=== PATIENT | male | born 1945 | race Caucasian/White ===

== ENCOUNTER → 2021-04-19 | Outpatient (CLI) | payer OTHER, MEDICARE ==
[~2021-04-19] MED LIST: ASPI81CH33 PO; ATOR1TAB19 PO; CYAN100050 PO; D3 +TAB PO; LISI10TA15 PO; METF500T13 PO; POLY17PO10 PO
== END ==
LOC: M LABSMTC 10:52
PROVIDERS: ATTEND Anesthesiology
DX: Z01.812 Encounter for preprocedural laboratory examination (principal); Z20.822 Contact with and (suspected) exposure to COVID-19

== ENCOUNTER 2021-04-24 09:07 | Day surgery (SDC) | payer MEDICARE, OTHER ==
[~2021-04-24] VITALS: Ht 182.9 cm; Wt 100.7 kg
[~2021-04-24 09:07] MED LIST changes: -LIQUID POLIBAR PLUS 105% w/v 1900ML BTL As Ordered ONE; +NS 1,000 ML IV ONE
[2021-04-24] MEDS ORDERED: propofoL 200 MG/20 ML VIAL As Ordered ONE (11:55)
--- NOTE | 2021-04-24 12:02 | ROOR ---
Patient Name: Bismark Villegas Procedure Date: 04/24/2021 11:34 AM Date of : 1945 Age: 75 Room: [facility] Gender: Male Note Status: Finalized Procedure: Colonoscopy Indications: High risk colon cancer surveillance: Personal history of colonic polyps Providers: DO Julio Westfall MD: Ton Bojorquez Requesting Provider: Medicines: Propofol per Anesthesia Complications: No immediate complications. Procedure: Pre-Anesthesia Assessment: - Prior to the procedure, a History and Physical was performed, and patient medications and allergies were reviewed. The patient is competent. The risks and benefits of the procedure and the sedation options and risks were discussed with the patient. All questions were answered and informed consent was obtained. Patient identification and proposed procedure were verified by the physician, the nurse, the rental agent and the airframe technician in the endoscopy suite. Mental Status Examination: alert and oriented. Airway Examination: normal oropharyngeal airway and neck mobility. Respiratory Examination: clear to auscultation. CV Examination: normal. Prophylactic Antibiotics: The patient does not require prophylactic antibiotics. Prior Anticoagulants: The patient has taken no previous anticoagulant or antiplatelet agents. ASA Grade Assessment: II - A patient with mild systemic disease. After reviewing the risks and benefits, the patient was deemed in satisfactory condition to undergo the procedure. The anesthesia plan was to use monitored anesthesia care (MAC). Immediately prior to administration of medications, the patient was re-assessed for adequacy to receive sedatives. The heart rate, respiratory rate, oxygen saturations, blood pressure, adequacy of pulmonary ventilation, and response to care were monitored throughout the procedure. The physical status of the patient was re-assessed after the procedure. The Colonoscope was introduced through the anus with the intention of advancing to the cecum. The scope was advanced to the sigmoid colon before the procedure was aborted. Medications were not given. The colonoscopy was performed without difficulty. The patient tolerated the procedure well. The colonoscopy was technically difficult and complex due to bowel stenosis. Findings: Multiple small and large-mouthed diverticula were found in the sigmoid colon. A benign-appearing, intrinsic severe stenosis measuring of unknown length was found in the sigmoid colon and was non-traversed. Biopsies were taken with a cold forceps for histology. Impression: - Diverticulosis in the sigmoid colon. - Stricture in the sigmoid colon. Biopsied. Recommendation: - Patient has a contact number available for emergencies. The signs and symptoms of potential delayed complications were discussed with the patient. Return to normal activities tomorrow. Written discharge instructions were provided to the patient. - Perform a barium enema today. Procedure Code(s): --- Professional --- 20851, 52, Colonoscopy, flexible; with biopsy, single or multiple Diagnosis Code(s): --- Professional --- Z86.010, Personal history of colonic polyps K56.699, Other intestinal obstruction unspecified as to partial versus complete obstruction K57.30, Diverticulosis of large intestine without perforation or abscess without bleeding CPT copyright 2019 [employer]. All rights reserved. The codes documented in this report are preliminary and upon fitter placer review may be revised to meet current compliance requirements. Severiano Oviedo DO 04/24/2021 12:02:07 PM Electronically signed by Severiano Oviedo DO Number of Addenda: 0 Note Initiated On: 04/24/2021 11:34 AM Estimated Blood Loss: Estimated blood loss was minimal.
[2021-04-24 12:26] VITALS: BP 124/67
== END 2021-04-24 12:28 | disposition home or self-care (01) ==
LOC: M OPP 09:07
PROVIDERS: ATTEND Surgery
DX: Z86.010 Personal history of colon polyps (principal); K63.5 Polyp of colon; K57.30 Diverticulosis of large intestine without perforation or abscess without bleeding; K56.699 Other intestinal obstruction unspecified as to partial versus complete obstruction; I10 Essential (primary) hypertension; E78.5 Hyperlipidemia, unspecified; E11.9 Type 2 diabetes mellitus without complications; I71.4 Abdominal aortic aneurysm, without rupture; Z87.891 Personal history of nicotine dependence; Z79.82 Long term (current) use of aspirin; Z79.84 Long term (current) use of oral hypoglycemic drugs; Z79.899 Other long term (current) drug therapy

== ENCOUNTER → 2021-04-24 | Outpatient (CLI) | payer OTHER ==
[~2021-04-24] MED LIST changes: +LIQUID POLIBAR PLUS 105% w/v 1900ML BTL As Ordered ONE
--- NOTE | 2021-04-24 17:36 | REP ---
INDICATION: SIGMOID STRICTURE. COMPARISON: None. TECHNIQUE: The procedure was performed under the direct supervision of Dr. Capps. The images were reviewed with Dr. Capps. Excel Vba Developer film shows normal organomegaly or pathological mass is. The intestinal gas pattern is nonspecific. There is an aortic stent graft visualized. There are vessel embolization coil seen overlying the right sacrum. Liquid barium and air were instilled into the colon in a retrograde flow of the barium and air mixture. In the sigmoid colon there is extensive diverticulosis with eccentric focal luminal narrowing. This may be due to extensive post diverticulitis changes versus neoplasm. Consider correlation with CT examination. There are scattered diverticula seen throughout the remainder of the colon. The remainder of the colon is unremarkable. There is free flow of contrast to the cecum. The appendix is visualized. There is reflux into the terminal ileum. FINDINGS: In the sigmoid colon there is extensive diverticulosis with eccentric focal luminal narrowing. This may be due to extensive post diverticulitis changes versus neoplasm. Consider correlation with CT examination. IMPRESSION: In the sigmoid colon there is extensive diverticulosis with eccentric focal luminal narrowing. This may be due to extensive post diverticulitis changes versus neoplasm. Consider correlation with CT examination. <Electronically signed by Charlie Lugo > 04/24/21 1715 <Electronically signed by Jimmie Capps > 04/24/21 3131
== END ==
LOC: M RAD 14:28
PROVIDERS: ATTEND Surgery
DX: K56.609 Unspecified intestinal obstruction, unspecified as to partial versus complete obstruction (principal); Z86.010 Personal history of colon polyps; K63.5 Polyp of colon; K57.30 Diverticulosis of large intestine without perforation or abscess without bleeding; I10 Essential (primary) hypertension; E78.5 Hyperlipidemia, unspecified; E11.9 Type 2 diabetes mellitus without complications; I71.4 Abdominal aortic aneurysm, without rupture; Z87.891 Personal history of nicotine dependence; Z79.82 Long term (current) use of aspirin; Z79.84 Long term (current) use of oral hypoglycemic drugs; Z79.899 Other long term (current) drug therapy

== ENCOUNTER → 2021-06-18 | Outpatient (REF) | payer OTHER ==
[~2021-06-18] MED LIST changes: +FAMO20TA PO; -NS 1,000 ML IV ONE
[2021-06-18 17:58] LABS: CREATININE FOR GFR 1.4 MG/DL (0.70-1.30); GLOMERULAR FILTRATION RATE 52.7 (>42)
== END ==
LOC: M LABDRAWC 15:49
PROVIDERS: ATTEND Surgery
DX: C18.7 Malignant neoplasm of sigmoid colon (principal)

== ENCOUNTER → 2021-06-19 | Outpatient (CLI) | payer OTHER | LOC: M LABSMTC 10:05 | PROVIDERS: ATTEND Anesthesiology | DX: Z01.812 Encounter for preprocedural laboratory examination (principal); Z20.822 Contact with and (suspected) exposure to COVID-19 ==

== ENCOUNTER → 2021-06-19 | Outpatient (CLI) | payer OTHER ==
[~2021-06-19] MED LIST changes: +GLUCAGON INJ 1MG VIAL As Ordered ONE; +ISOVUE-370 76% 100ML VIAL As Ordered ONE; +NEULUMEX 0.1% SUSPENSION 450ML BOTTLE (FORMERLY VOLUMEN) As Ordered ONE
--- NOTE | 2021-06-19 16:43 | REP ---
INDICATION: MALIGNANT NEOPLASM SIGMOID COLON COMPARISON: None. TECHNIQUE: CT Scan of the abdomen and pelvis was performed with intravenous administration of 100 cc of Isovue 370, and volumen oral contrast. Sagittal and coronal reconstruction images are performed. FINDINGS: Lung bases: Unremarkable. There is a small hiatal hernia. Liver: Normal Gallbladder: Unremarkable. Spleen: Normal. Adrenals: Normal. Pancreas: Normal. Kidneys: There are multiple cystic structures of the left kidney. A cyst of the lateral aspect of the upper pole of the left kidney is exophytic and measures approximately 3.9 cm in diameter. In the lower pole there is a lobulated exophytic cystic structure with internal septations, some which are calcified. The largest cystic element measures 4.5 cm. This is a Bosniak class 2 F complex renal cyst for which six-month follow-up dedicated CT or MRI of the kidneys is recommended. Small and large bowel: There are multiple sigmoid diverticula. Multiple diverticula of the left colon are present. There is diffuse thickening of the sigmoid colon. This is likely on basis of chronic diverticulitis. However underlying neoplastic disease cannot be excluded. At the inferior aspect of the sigmoid colon there is diffuse thickening of the adjacent superior wall of the bladder. There is a focal oval air and fluid collection which does not definitely connect to the sigmoid colon and is at least partially within the wall of the bladder. I suspect this may represent a small wall of abscess in the superior wall of the bladder with adjacent diffuse inflammatory thickening of the bladder wall. This measures about 2.5 cm maximum diameter.. Free fluid: None. Abdominal aorta: There is mild aneurysmal dilatation of the distal abdominal aorta up to 3.3 cm. There is an aorto bi-iliac stent graft. Left common iliac artery is dilated up to about 2.3 cm.. Adenopathy: None. Appendix: Not inflamed. Osseous structures: There are degenerative changes of the spine. Pelvis: No mass. IMPRESSION: Left colonic and sigmoid diverticulosis. Diffuse thickening of the sigmoid colon is likely on the basis of chronic diverticulitis. However, underlying neoplastic disease cannot be excluded. The adjacent superior wall of the urinary bladder is diffusely thickened, likely inflammatory and secondary to the diverticulitis. There is a focal 2.5 cm air and fluid collection which appears to at least lie partially within the bladder wall, and I suspect this represents an abscess at this location. There is a cystic mass of the lower pole the left kidney with thin imperceptible septations. There are calcifications visualized within some of the septations. This is a class 2 F complex renal cyst for which six-month follow-up dedicated CT or MRI of the kidneys is recommended. <Electronically signed by Severiano Mora > 06/19/21 1640
== END ==
LOC: M RAD 14:09
PROVIDERS: ATTEND Surgery
DX: Z01.812 Encounter for preprocedural laboratory examination (principal); C18.7 Malignant neoplasm of sigmoid colon; K57.30 Diverticulosis of large intestine without perforation or abscess without bleeding; N28.89 Other specified disorders of kidney and ureter; N28.1 Cyst of kidney, acquired; Z20.822 Contact with and (suspected) exposure to COVID-19
CPT/HCPCS: 74177; J1610; Q9967; U0003

== ENCOUNTER 2021-06-24 05:59 | Inpatient (IN) | payer OTHER ==
--- NOTE | 2021-06-18 15:25 | HPE ---
HISTORY AND PHYSICAL DATE OF ADMISSION: 06/24/2021 PREOPERATIVE HISTORY AND PHYSICAL CHIEF COMPLAINT: Sigmoid stricture. HISTORY OF PRESENT ILLNESS: The patient is a 75-year-old patient of mine who came in for an elective surveillance colonoscopy due to a history of polyps. The procedure was done on 04/24/2021. The scope was unable to be completed due to significant narrowing of the sigmoid colon. That was followed later in the afternoon by a barium enema and again showed extensive diverticulosis with focal luminal narrowing due to extensive post-diverticulitis changes versus neoplasm, but they were able to get contrast past all the way to the level of the cecum. Because of this extensive narrowing, recommendation was to proceed with a CAT scan to rule out neoplasm versus the diverticulosis, as well as to set him up for an elective sigmoid resection. As of now, his CT scan has still not been completed, but he is hoping to get it done by the end of this week. He has not had any other problems with bowel movements other than having some small caliber to his stools. No blood in his stool. No abdominal pains. No other complaints. PAST MEDICAL HISTORY: 1. Hypertension. 2. Hyperlipidemia. 3. Diabetes. PAST SURGICAL HISTORY: 1. Iliac stents with abdominal aortic aneurysm repair. 2. Previous colonoscopy. FAMILY HISTORY: Noncontributory. ALLERGIES: None. HOME MEDICATIONS: Please see the medical record. SOCIAL HISTORY: Denies drug or alcohol or tobacco abuse. REVIEW OF SYSTEMS: Positives and negatives as stated in the HPI. PHYSICAL EXAMINATION: GENERAL: Alert and oriented x3. No acute distress. VITAL SIGNS: Blood pressure 140/80, weight 223. HEENT: Pupils equally round and reactive to light and accommodation. HEART: S1, S2, regular rate and rhythm. LUNGS: Clear to auscultation bilaterally. ABDOMEN: Soft, nontender, non-distended. EXTREMITIES: No clubbing, cyanosis, or edema. LABORATORY DATA: No labs obtained at this time. ASSESSMENT AND PLAN: Patient is a 75-year-old male with a sigmoid stricture likely secondary to chronic diverticulosis. RECOMMENDATIONS: The recommendation at this time is to proceed with a robotic sigmoid resection. Risks and benefits of the procedure, not limited to, but including, bleeding, infection, perforation, hernia, anastomotic leak, damage to the surrounding structures, and need for further surgery were discussed in detail with the patient and his family. Informed consent was obtained and the procedure is planned and scheduled for 06/24/2021.
[2021-06-24] VITALS (10 sets, daily range): BP systolic 95–127; BP diastolic 55–70; O2SAT 95–96
[~2021-06-24] VITALS: Ht 182.9 cm; Wt 99.2 kg
[~2021-06-24 05:59] MED LIST changes: -GLUCAGON INJ 1MG VIAL As Ordered ONE; -ISOVUE-370 76% 100ML VIAL As Ordered ONE; -NEULUMEX 0.1% SUSPENSION 450ML BOTTLE (FORMERLY VOLUMEN) As Ordered ONE
[2021-06-24] MEDS ORDERED: LR 1,000 ML IV ONE (06:00)
[2021-06-24] MEDS ORDERED: cefoTEtan DISODIUM 2 GM in D5W MINI-BAG PLUS 50 ML IV ONE (06:00)
[2021-06-24] MEDS ORDERED: LIDOCAINE 1% MDV 20ML VIAL SQ PRN (06:00)
[2021-06-24] MEDS ORDERED: KETOROLAC 30 MG/ML 1ML VIAL IV PRN (07:00)
[2021-06-24] MEDS ORDERED: ONDANSETRON 4MG/2ML VIAL IV PRN ×2 (07:00→15:00)
[2021-06-24] MEDS: NS 1,000 ML IV SCH ×3 (07:00→22:34)
[2021-06-24] MEDS ORDERED: MORPHINE 2 MG/ML 1ML VIAL (J2270) IV PRN ×2 (07:00→15:00)
[2021-06-24] MEDS ORDERED: BUPIVACAINE/EPIN 0.25% 30 ML VIAL As Ordered ONE (07:08)
[2021-06-24] MEDS ORDERED: dexameTHASONE 4 MG/ML 1ML VIAL (J1100 PER 1MG) As Ordered ONE (07:21)
[2021-06-24] MEDS ORDERED: ROCURONIUM BROMIDE 50 MG/5 ML VIAL As Ordered ONE ×3 (07:21→10:19)
[2021-06-24] MEDS ORDERED: fentaNYL 250 MCG/5 ML INJECTION (J3010) As Ordered ONE (07:21)
[2021-06-24] MEDS ORDERED: propofoL 200 MG/20 ML VIAL As Ordered ONE ×2 (07:21→14:09)
[2021-06-24] MEDS ORDERED: LIDOCAINE 2% 100MG/5ML SDV (FOR ANES.) As Ordered ONE (07:21)
[2021-06-24] MEDS ORDERED: MIDAZOLAM INJ 2MG/2ML VIAL (J2250 PER 1MG) As Ordered ONE (07:22)
[2021-06-24] MEDS ORDERED: PHENYLephrine 500MCG 5ML (100MCG/ML) SYRINGE As Ordered ONE (08:06)
[2021-06-24] MEDS ORDERED: ePHEDrine SULFATE 25 MG/5 ML(5MG/ML) SYRINGE As Ordered ONE (08:06)
[2021-06-24] MEDS ORDERED: SUGAMMADEX SODIUM 500 MG/5 ML VIAL (BRIDION) As Ordered ONE ×2 (08:47→14:09)
[2021-06-24] MEDS ORDERED: LACRILUBE (AKWA TEARS) OPHTH OINT 3.5 GM As Ordered ONE (08:47)
[2021-06-24] MEDS ORDERED: HYDROmorphone HCL 2 MG/ML 1ML VIAL (J1170) As Ordered ONE (08:47)
[2021-06-24] MEDS ORDERED: ACETAMINOPHEN 1000MG 100ML IV BTL (OFIRMEV) (J0131 PER 10MG) As Ordered ONE (08:47)
[2021-06-24] MEDS ORDERED: ONDANSETRON 4MG/2ML VIAL As Ordered ONE (08:49)
[2021-06-24] MEDS ORDERED: KETOROLAC 60MG 2ML VIAL As Ordered ONE (08:49)
[2021-06-24] MEDS: ENOXAPARIN 40MG/0.4ML SYRINGE (J1650 PER 10MG) SC SCH (09:00)
[2021-06-24] MEDS ORDERED: cefoTEtan INJ 2GM VIAL (S0074 PER 500MG) As Ordered ONE (11:42)
[2021-06-24] MEDS: PIPERACILLIN/TAZOBACTAM SOD 3.375 GM in D5W MINI-BAG PLUS 50 ML IV SCH ×2 (13:00→18:18)
[2021-06-24] MEDS ORDERED: KETAMINE HCL 200 MG/20 ML VIAL As Ordered ONE (13:36)
[2021-06-24] MEDS ORDERED: fentaNYL 100 MCG/2 ML INJECTION (J3010) IV PRN (15:00)
[2021-06-24] MEDS ORDERED: LR 1,000 ML IV SCH (15:00)
[2021-06-24] MEDS ORDERED: oxyCODONE 5MG TAB PO PRN (15:00)
--- NOTE | 2021-06-24 16:25 | RO ---
OPERATIVE NOTE DATE OF OPERATION: 06/24/2021 PREOPERATIVE DIAGNOSIS: Sigmoid stricture. POSTOPERATIVE DIAGNOSIS: Sigmoid stricture. PROCEDURE: Robotic sigmoid resection. SURGEON: Severiano Oviedo DO ZONING ADMINISTRATOR: Vance Henley MD. Dr. Henley assisted with mobilization of the colon, removal of the specimen as well as creation of the anastomosis. ANESTHESIA: General. ESTIMATED BLOOD LOSS: 100 mL COMPLICATIONS: None. INDICATIONS FOR PROCEDURE: The patient is a 75-year-old male who during colonoscopy was found to have significant narrowing and stricture of the sigmoid colon. He underwent a barium enema that confirmed the same findings. Due to this, recommend was to proceed with robotic resection. Risks and benefits of the procedure are not limited to, but including bleeding, infection, hernias, damage to surrounding structures, anastomotic leak and need for further surgery were discussed in detail to the patient. Informed consent was obtained and procedure is planned. DESCRIPTION OF PROCEDURE: The patient was brought back to operating room 7. After sufficient sedation, a Oropeza catheter was placed. The abdomen and perineum were then sterilely prepped and draped. Next, a timeout was done to confirm proper patient and proper procedure. Following that, an 8 mm was made in the left lower quadrant. A Veress needle was inserted and the abdomen was inflated to 15 mmHg. The Veress needle was then removed and a 5 mm camera was used to placed an 8 mm Optiview port. Once the camera and port were in place, the abdomen was examined. Three ports were placed diagonally from the left upper quadrant to the right lower quadrant with the right lower port being a 12 mm stapler port. Next, the robot was docked to the ports from the console. The sigmoid colon was densely adhered along the lateral pelvic wall and the superior bladder. Starting laterally in the mid-abdomen, I started dissection along the lateral peritoneal reflection of the colon extending inferiorly into the pelvic brim. I then started working medially on the pelvis wall, anterior sigmoid colon as well where it was densely adhered there. I continued dissection back and forth for about two hours. At that time, I had Dr. Henley assist me and he worked for about an hour or two, slowing going through and dissecting. We were able to transect the colon about the level of the pelvic brim by making a small window through the mesentery and stapling it off with the 60 mm green load stapler that helps to improve mobilization distally so that we could carry out the dissection circumferentially around the bowel wall heading distally down into the pelvis. After about another hour and a half to two hours worth of careful dissecting, I finally had enough colon mobile enough so that we could get a staple on it distally. I was able to transect about the mid to distal rectum. Once that was completed, the descending and proximal sigmoid colon was mobilized laterally all the way up towards the splenic flexure. It was dissected sufficiently enough to be able to bring it down and mobilize it down into the pelvis to create the anastomosis. Once that was completed, graspers were placed on the specimen and on the distal colon to catalina them. The robot was then removed. A 5 cm midline incision was then made inferior to the umbilicus. The abdomen was entered. Mobius wound protector was placed. Specimen was removed. Next, the colon was brought out. A 25 EEA stapler anvil was placed inside the end. A LASHA 75 blue load stapler was then brought across the end of the colon and the stapler was brought out through it. A couple interrupted Prolene sutures were placed around the neck of the anvil to hold it in place. The colon was then placed back inside the abdomen along with a 19 Persian Saturnino drain. The mini-laparotomy incision was then closed with a running 1 PDS suture. The abdomen was then reinsufflated. The EEA stapler was brought into the rectum. A stapled anastomosis was created. The pelvis was filled with saline as air was passed in through the rectum with no signs of any bubbles. The two donuts were intact as well. The Tisseel was then placed around the anastomosis site. A Saturnino drain was placed. Next, the anastomosis was brought out through the right inferior port site, sutured to the skin with a 2-0 silk suture. The abdomen was desufflated. The skin incision was closed with pallavi. The abdomen was cleaned and dried. 4x4 and tape were applied, this ending the procedure.
[2021-06-24] MEDS: PANTOPRAZOLE 40MG TAB (PROTONIX) PO SCH (16:53)
[2021-06-24] MEDS: SENOKOT S TAB PO SCH ×2 (16:53→20:47)
[2021-06-24] MEDS ORDERED: dexameTHASONE 4 MG/ML 1ML VIAL (J1100 PER 1MG) IV ONE (18:35)
[2021-06-25] VITALS (7 sets, daily range): BP systolic 110–123; BP diastolic 56–74; O2SAT 95–96
[2021-06-25] MEDS: PIPERACILLIN/TAZOBACTAM SOD 3.375 GM in D5W MINI-BAG PLUS 50 ML IV SCH ×4 (00:48→18:45)
[2021-06-25] MEDS: NS 1,000 ML IV SCH ×3 (06:27→22:06)
[2021-06-25 06:46] LABS: HEMATOCRIT 36.5 % (42.0-52.0); HEMOGLOBIN 12.3 g/dl (13.5-17.5); MEAN CORPUSCULAR HEMOGLOBIN 29.9 pg (27.0-33.0); MEAN CORPUSCULAR HGB CONC 33.7 g/dl (32.0-36.5); MEAN CORPUSCULAR VOLUME 88.6 fl (80.0-96.0); PLATELET COUNT, AUTOMATED 294 10^3/uL (150-450); RED BLOOD COUNT 4.12 10^6/uL (4.30-6.10); WHITE BLOOD COUNT 14.6 10^3/uL (4.0-10.0)
[2021-06-25 07:10] LABS: ALBUMIN 2.9 GM/DL (3.2-5.2); BILIRUBIN,TOTAL 0.5 MG/DL (0.2-1.0); CALCIUM LEVEL 7.9 MG/DL (8.8-10.2); CREATININE FOR GFR 1.87 MG/DL (0.70-1.30); GLOMERULAR FILTRATION RATE 37.7 (>42); POTASSIUM SERUM 4.2 MEQ/L (3.5-5.1); TOTAL PROTEIN 6.5 GM/DL (6.4-8.2)
[2021-06-25] MEDS ORDERED: NS 500 ML IV ONE (08:20)
[2021-06-25] MEDS: PANTOPRAZOLE 40MG TAB (PROTONIX) PO SCH (08:59)
[2021-06-25] MEDS: SENOKOT S TAB PO SCH ×2 (08:59→20:04)
[2021-06-25] MEDS: ENOXAPARIN 40MG/0.4ML SYRINGE (J1650 PER 10MG) SC SCH (09:00)
[2021-06-25] MEDS: ATORVASTATIN 10 MG TAB PO SCH (09:00)
[2021-06-25] MEDS: hydroCHLOROthiazide 12.5 MG CAPSULE PO SCH (09:00)
--- NOTE | 2021-06-25 09:46 | IPNPDOC ---
Text Note Date of Service The patient was seen on 06/25/21. NOTE General surgery. Dr. Oviedo The patient is a 75-year-old male who was found to have significant narrowing and stricture of the sigmoid colon on colonoscopy with barium enema which confirmed the same findings, now status post robotic assisted laparoscopic sigmoidectomy 06/24/[address] Oviedo. Overnight the patient was noted to have some difficulty swallowing with some swelling noted in the pharynx, the patient was given dexamethasone IV and states this is now improved. He denies any difficulty swallowing this morning. He finished clear liquids on his tray without difficulty. He reports pain is reasonably controlled. Denies nausea or vomiting. Has not had any flatus or BM yet. Has not been out of bed yet. Afebrile Heart rate 59, respiratory rate 16, blood pressure 120/64, 95% room air. MMM Abdomen soft, mildly distended, surgical sites are C/D/I, GIULIA drain in place with serosanguineous drainage. Extremities with no edema GIULIA drain output yesterday 130 mL. WBC 14.6, hemoglobin 12.3, platelets 294. Serum creatinine 1.87 with GFR 37.7. BUN 26. Labs 06/18/2021 indicate serum creatinine 1.40 with GFR 52.7. Pathology pending. Assessment/plan Narrowing and stricture of the sigmoid colon on colonoscopy with barium enema which confirmed the same findings, now status post robotic assisted laparoscopic sigmoidectomy 06/24/[address] Oviedo. The patient is reviewed and examined as per Dr. Oviedo this morning. IV Zosyn IVF 500 cc bolus this morning. Continue with clear liquids. Discontinue Oropeza catheter. 550 mL urine output recorded so far today, will continue to monitor urine output. Encouraged incentive spirometry, reviewed with the patient. Encourage out of bed, ambulate in the hallways with nursing. HTN Lisinopril/HCTZ BP controlled. HLD Statin CKD. Labs 06/18/2021 serum creatinine 1.20 with GFR 52.7. Normal saline 500 cc bolus this morning. Monitor. GERD. Protonix DVT px. Lovenox. VS,Fishbone, I+O VS, Fishbone, I+O Laboratory Tests 06/25/21 05:57 06/25/21 05:58 Vital Signs Date Time Temp Pulse Resp B/P (MAP) Pulse Ox O2 Delivery O2 Flow Rate FiO2 06/25/21 09:00 130/62 06/25/21 06:35 97.7 59 16 95 Room Air 06/24/21 21:00 2.0 I&O- Last 24 Hours up to 6 AM 06/25/21 05:59 Intake Total 3097 ml Output Total 460 ml Balance 2637 ml Rama Cortes Jun 25, 2021 09:46
[2021-06-26] MEDS: PIPERACILLIN/TAZOBACTAM SOD 3.375 GM in D5W MINI-BAG PLUS 50 ML IV SCH ×4 (00:41→18:49)
[2021-06-26 06:00] VITALS: BP 130/67
[2021-06-26] MEDS: NS 1,000 ML IV SCH (06:14)
[2021-06-26 06:24] LABS: HEMATOCRIT 34.1 % (42.0-52.0); HEMOGLOBIN 11.4 g/dl (13.5-17.5); MEAN CORPUSCULAR HEMOGLOBIN 29.8 pg (27.0-33.0); MEAN CORPUSCULAR HGB CONC 33.4 g/dl (32.0-36.5); PLATELET COUNT, AUTOMATED 244 10^3/uL (150-450); RED BLOOD COUNT 3.83 10^6/uL (4.30-6.10); WHITE BLOOD COUNT 11.1 10^3/uL (4.0-10.0)
[2021-06-26 06:50] LABS: ALBUMIN 2.7 GM/DL (3.2-5.2); ALT/SGPT 19 U/L (12-78); BILIRUBIN,TOTAL 0.6 MG/DL (0.2-1.0); BLOOD UREA NITROGEN 17 MG/DL (7-18); CARBON DIOXIDE LEVEL 25 MEQ/L (21-32); CHLORIDE LEVEL 112 MEQ/L (98-107); CREATININE FOR GFR 1.24 MG/DL (0.70-1.30); GLOMERULAR FILTRATION RATE > 60.0 (>42); GLUCOSE, FASTING 117 MG/DL (70-100); POTASSIUM SERUM 3.9 MEQ/L (3.5-5.1); SODIUM LEVEL 142 MEQ/L (136-145)
[2021-06-26] MEDS: SENOKOT S TAB PO SCH ×2 (08:35→20:06)
[2021-06-26] MEDS: ATORVASTATIN 10 MG TAB PO SCH (08:35)
[2021-06-26] MEDS: PANTOPRAZOLE 40MG TAB (PROTONIX) PO SCH (08:35)
[2021-06-26] MEDS: hydroCHLOROthiazide 12.5 MG CAPSULE PO SCH (08:36)
[2021-06-26] MEDS: ENOXAPARIN 40MG/0.4ML SYRINGE (J1650 PER 10MG) SC SCH (08:37)
--- NOTE | 2021-06-26 10:30 | IPNPDOC ---
Text Note Date of Service The patient was seen on 06/26/21. NOTE General surgery. Dr. Oviedo The patient is a 75-year-old male who was found to have significant narrowing and stricture of the sigmoid colon on colonoscopy with barium enema which confirmed the same findings, now status post robotic assisted laparoscopic sigmoidectomy 06/24/[address] Oviedo. The patient reports pain has been controlled. The patient is out of bed to the chair this morning. States he has ambulated in the hallways. Reports urinating without difficulty. Reports flatus, BM x1. Tolerating clear liquids. Afebrile VSS MMM Abdomen soft, mildly distended, surgical sites are C/D/I, GIULIA drain in place with serosanguineous drainage. Extremities with no edema GIULIA drain output yesterday 80 mL. WBC 11.1, decreased from 14.6, hemoglobin 11.4, platelets 244. Serum creatinine 1.24 with GFR greater than 60. Improved compared with yesterday Pathology pending. Assessment/plan Narrowing and stricture of the sigmoid colon on colonoscopy with barium enema which confirmed the same findings, now status post robotic assisted laparoscopic sigmoidectomy 06/24/[address] Oviedo. The patient is reviewed with Dr. Oviedo. Reports flatus and BM x1. IV Zosyn IVF 125cc/hr. Currently tolerating clear liquids. Continue to encourage out of bed. HTN Lisinopril/HCTZ BP controlled. HLD Statin CKD. Scr improved with IVF. Monitor. GERD. Protonix DVT px. Lovenox. VS,Fishbone, I+O VS, Fishbone, I+O Laboratory Tests 06/26/21 06:03 Vital Signs Date Time Temp Pulse Resp B/P (MAP) Pulse Ox O2 Delivery O2 Flow Rate FiO2 06/26/21 08:36 159/81 06/26/21 06:00 98.5 57 16 94 Room Air 06/25/21 09:00 2.0 I&O- Last 24 Hours up to 6 AM 06/26/21 06:00 Intake Total 2935 ml Output Total 1780 ml Balance 1155 ml Rama Cortes Jun 26, 2021 10:30
[2021-06-26 14:00] VITALS: BP 120/66
[2021-06-26 22:00] VITALS: BP 113/65
[2021-06-27] MEDS: PIPERACILLIN/TAZOBACTAM SOD 3.375 GM in D5W MINI-BAG PLUS 50 ML IV SCH ×2 (01:11→06:21)
[2021-06-27 06:00] VITALS: BP 132/72
[2021-06-27 06:26] LABS: HEMATOCRIT 37.2 % (42.0-52.0); HEMOGLOBIN 12.2 g/dl (13.5-17.5); MEAN CORPUSCULAR HEMOGLOBIN 29.9 pg (27.0-33.0); MEAN CORPUSCULAR HGB CONC 32.8 g/dl (32.0-36.5); MEAN CORPUSCULAR VOLUME 91.2 fl (80.0-96.0); PLATELET COUNT, AUTOMATED 293 10^3/uL (150-450); RED BLOOD COUNT 4.08 10^6/uL (4.30-6.10); WHITE BLOOD COUNT 10.7 10^3/uL (4.0-10.0)
[2021-06-27 06:53] LABS: ALT/SGPT 21 U/L (12-78); BILIRUBIN,TOTAL 0.7 MG/DL (0.2-1.0); BLOOD UREA NITROGEN 14 MG/DL (7-18); CALCIUM LEVEL 8.7 MG/DL (8.8-10.2); CARBON DIOXIDE LEVEL 26 MEQ/L (21-32); CHLORIDE LEVEL 109 MEQ/L (98-107); CREATININE FOR GFR 1.19 MG/DL (0.70-1.30); GLOMERULAR FILTRATION RATE > 60.0 (>42); GLUCOSE, FASTING 105 MG/DL (70-100); POTASSIUM SERUM 4.3 MEQ/L (3.5-5.1); SODIUM LEVEL 140 MEQ/L (136-145); TOTAL PROTEIN 6.7 GM/DL (6.4-8.2)
[2021-06-27] MEDS: hydroCHLOROthiazide 12.5 MG CAPSULE PO SCH (08:59)
[2021-06-27] MEDS: ATORVASTATIN 10 MG TAB PO SCH (08:59)
[2021-06-27 09:00] VITALS: BP 132/72
[2021-06-27] MEDS: SENOKOT S TAB PO SCH (09:00)
[2021-06-27] MEDS: PANTOPRAZOLE 40MG TAB (PROTONIX) PO SCH (09:00)
[2021-06-27] MEDS: ENOXAPARIN 40MG/0.4ML SYRINGE (J1650 PER 10MG) SC SCH (09:01)
--- NOTE | 2021-06-27 15:09 | DS.PDOC ---
Discharge Summary General Date of Admission Jun 24, 2021 at 05:59 Date of Discharge 06/27/21 Discharge Summary General surgery. Dr. Oviedo PROCEDURES PERFORMED DURING STAY: status post robotic assisted laparoscopic sigmoidectomy 06/24/[address] Oviedo. ADMITTING DIAGNOSES: Significant narrowing and stricture of the sigmoid colon on colonoscopy with barium enema which confirmed the same findings, DISCHARGE DIAGNOSES: Significant narrowing and stricture of the sigmoid colon on colonoscopy with b arium enema which confirmed the same findings, status post robotic assisted laparoscopic sigmoidectomy 06/24/[address] Oviedo. HISTORY OF PRESENT ILLNESS: The patient is a 75-year-old male who was found to have significant narrowing and stricture of the sigmoid colon on colonoscopy with barium enema which confirmed the same findings, now status post robotic assisted laparoscopic sigmoidectomy 06/24/[address] Oviedo. HOSPITAL COURSE: Initially postoperatively the patient was noted to have some difficulty swallowing with swelling noted in the pharynx. The patient was given IV dexamethasone with improvement. T otherwise, the patient has recovered well status post robotic assisted laparoscopic sigmoidectomy 06/24. By postoperative day #1, 06/25 the patient was tolerating clear liquids for breakfast without difficulty. Reported pain was controlled. He was noted to have 550 mL urine output and was given a 500 cc bolus. Following this, the patient had good urine output. Reported flatus and had BM x1. He was up out of bed. Ambulating in the room. By 06/26 he was advanced to regular diet. On 06/27/2021 GIULIA drain was removed. The patient had been out of bed and ambulating. Was tolerating regular diet and felt stable for discharge. DISCHARGE MEDICATIONS: Please see below. ALLERGIES: Please see below. PHYSICAL EXAMINATION ON DISCHARGE: VITAL SIGNS: Please see below. GENERAL: No acute distress HEENT: MMM CARDIOVASCULAR EXAMINATION: RRR RESPIRATORY EXAMINATION: Clear to auscultation ABDOMINAL EXAMINATION: Soft, nontender, nondistended. All incisions are C/D/I. GIULIA drain will be removed prior to discharge. EXTREMITIES: No edema LABORATORY DATA: Please see below. IMAGING: None DISCHARGE PLAN: Discharge home Regular diet Tylenol or ibuprofen as needed. Okay to shower, no bath for 5 days No heavy lifting, pushing, pulling greater than 20 pounds for 2 weeks Call back to the office with any questions or concerns, wound drainage, fevers, chills or increasing pain Follow-up with Dr. Oviedo in 2 weeks. DISPOSITION: 01 Home, Self-Care. DISCHARGE CONDITION: Stable. TIME SPENT ON DISCHARGE: Greater than 30 minutes. Vital Signs/I&Os Vital Signs Date Time Temp Pulse Resp B/P (MAP) Pulse Ox O2 Delivery O2 Flow Rate FiO2 06/27/21 09:00 132/72 06/27/21 06:00 97.9 53 21 98 Room Air 06/25/21 09:00 2.0 I&O- Last 24 Hours up to 6 AM 06/27/21 06:00 Intake Total 2180 ml Output Total 75 ml Balance 2105 ml Laboratory Data Labs 24H Laboratory Tests 2 06/27/21 05:46: Nucleated Red Blood Cells % (auto) 0.0, Anion Gap 5L, Glomerular Filtration Rate > 60.0, Calcium Level 8.7L, Total Bilirubin 0.7, Aspartate Amino Transf (AST/SGOT) 31, Alanine Aminotransferase (ALT/SGPT) 21, Alkaline Phosphatase 75, Total Protein 6.7, Albumin 3.0L, Albumin/Globulin Ratio 0.8 CBC/BMP Laboratory Tests 06/27/21 05:46 Discharge Medications Scheduled Aspirin (Aspirin) 81 Mg Tab.chew, 81 MG PO DAILY, (Reported) Atorvastatin Calcium (Atorvastatin Calcium) 10 Mg Tablet, 10 MG PO DAILY, (Reported) Cholecalciferol (Vitd3)/Vit K2 (D3 + K2 Dots 1,000 Units Tab) 1 Each Tab.rapdis, 2 TAB PO DAILY, (Reported) Cyanocobalamin (Vitamin B-12) (Vitamin B-12) 1,000 Mcg Tablet, 1,000 MCG PO 2XWK, (Reported) Famotidine (Famotidine) 20 Mg Tablet, 20 MG PO BID, (Reported) Lisinopril/Hydrochlorothiazide (Lisinopril-Hctz 10-12.5 mg Tab) 1 Each Tablet, 1 TAB PO DAILY, (Reported) Metformin HCl (Metformin HCl) 500 Mg Tablet, 1,000 MG PO BID, (Reported) Allergies Coded Allergies: shellfish derived (Verified Allergy, Intermediate, hives, 06/24/21) Rama Cortes Jun 27, 2021 15:09
== END 2021-06-27 11:50 | disposition home or self-care (01) | DRG 331 ==
LOC: M OR 05:59 → M MS5PR 16:25
PROVIDERS: ADMIT Surgery; ATTEND Surgery
PROC: 8E0W4CZ Robotic Assisted Procedure of Trunk Region, Percutaneous Endoscopic Approach (ICD-10-PCS; 2021-06-24)
PROC: 0DBN4ZZ Excision of Sigmoid Colon, Percutaneous Endoscopic Approach (ICD-10-PCS; principal; 2021-06-24 07:30)
DX: K56.609 Unspecified intestinal obstruction, unspecified as to partial versus complete obstruction (principal); I10 Essential (primary) hypertension; E78.5 Hyperlipidemia, unspecified; E11.9 Type 2 diabetes mellitus without complications; Z91.013 Allergy to seafood; Z79.82 Long term (current) use of aspirin; Z79.84 Long term (current) use of oral hypoglycemic drugs; Z79.899 Other long term (current) drug therapy